=== PATIENT | male | born 1975 | race Caucasian/White ===

== ENCOUNTER → 2017-08-26 | Outpatient (CLI) | payer OTHER ==
[2017-08-20 14:45] VITALS: BP 152/84
[~2017-08-26] MED LIST: HYDR-971 PO
--- NOTE | 2017-08-26 11:53 | RAD ---
Right hand, 3 views, 08/26/2017: History: Follow-up boxer's fracture Comparison is made to a study from 08/20/2017. The distal fifth metacarpal fracture is unchanged in position. There is slight impaction at the fracture site with mild volar angulation and displacement of the major distal fracture fragment. No new abnormality is seen. IMPRESSION: Stable, mildly displaced distal fifth metacarpal fracture.
== END | disposition home or self-care (01) ==
LOC: RAD 10:56
PROVIDERS: ATTEND Nurse Practitioner Gerontology
DX: S62.339D Displaced fracture of neck of unspecified metacarpal bone, subsequent encounter for fracture with routine healing (principal)
CPT/HCPCS: 73130